=== PATIENT | female | born 1945 | race Caucasian/White ===

== ENCOUNTER → 2016-12-17 | Outpatient (CLI) | payer MEDICARE, BC ==
[2016-12-17 09:47] LABS: ALT 40 U/L (9-52); AST 32 U/L (14-36); Cholesterol 235 mg/dL (<200); HDL Cholesterol 80 mg/dL (40-60)
== END | disposition home or self-care (01) ==
LOC: LABWHC1 09:06
PROVIDERS: ATTEND Internal Medicine Interventional Cardiology
DX: E78.2 Mixed hyperlipidemia (principal)
CPT/HCPCS: 36415; 80061; 84450; 84460

== ENCOUNTER → 2017-04-23 | Outpatient (CLI) | payer MEDICARE, BC ==
[2017-04-23 08:40] LABS: Basophils % (A) 1 %; Eosinophils # (A) 0.1 k/uL (0-0.7); Eosinophils % (A) 2 %; HCT 39.1 % (34.0-46.0); HGB 12.2 gm/dL (11.4-16.0); Hypochromasia Slight; Lymphocytes # (A) 2.1 k/uL (1.0-4.8); Lymphocytes % (A) 35 %; MCH 26.9 pg (25.0-35.0); MCHC 31.1 g/dL (31.0-37.0); MCV 86.6 fL (80.0-100.0); Mean Platelet Volume 6.9; Monocytes # (A) 0.2 k/uL (0-1.0); Monocytes % (A) 4 %; Neutrophils # (A) 3.3 k/uL (1.3-7.7); Neutrophils % (A) 56 %; Platelet Count 267 k/uL (150-450); RBC 4.52 m/uL (3.80-5.40); RDW 13.7 % (11.5-15.5); WBC 5.9 k/uL (3.8-10.6)
[2017-04-23 09:07] LABS: ALT 29 U/L (9-52); AST 27 U/L (14-36); Albumin 3.8 g/dL (3.5-5.0); Alkaline Phosphatase 105 U/L (38-126); Anion Gap 7 mmol/L; Blood Urea Nitrogen 15 mg/dL (7-17); Calcium 9.6 mg/dL (8.4-10.2); Carbon Dioxide 31 mmol/L (22-30); Chloride 105 mmol/L (98-107); Cholesterol 274 mg/dL (<200); Glucose 96 mg/dL (74-99); HDL Cholesterol 81 mg/dL (40-60); LDL Cholesterol,Calculated 171 mg/dL (0-99); Potassium 4.3 mmol/L (3.5-5.1); Sodium 143 mmol/L (137-145); Total Bilirubin 0.4 mg/dL (0.2-1.3); Total Protein 6.9 g/dL (6.3-8.2); Triglycerides 110 mg/dL (<150)
== END | disposition home or self-care (01) ==
LOC: LABWHC1 07:59
PROVIDERS: ATTEND Family Medicine
DX: I10 Essential (primary) hypertension (principal); E55.9 Vitamin D deficiency, unspecified; E78.2 Mixed hyperlipidemia
CPT/HCPCS: 36415; 80053; 80061; 82306; 85025

== ENCOUNTER → 2017-12-15 | Outpatient (CLI) | payer MEDICARE, BC ==
[2017-12-15 09:29] LABS: ALT 22 U/L (9-52); AST 26 U/L (14-36); Cholesterol 278 mg/dL (<200); HDL Cholesterol 79 mg/dL (40-60); LDL Cholesterol,Calculated 166 mg/dL (0-99); Triglycerides 163 mg/dL (<150)
== END | disposition home or self-care (01) ==
LOC: LABWHC1 08:25
PROVIDERS: ATTEND Internal Medicine Interventional Cardiology
DX: E78.2 Mixed hyperlipidemia (principal)
CPT/HCPCS: 36415; 80061; 84450; 84460

== ENCOUNTER → 2018-04-13 | Outpatient (CLI) | payer MEDICARE, BC ==
[2018-04-13 11:09] LABS: HCT 34.6 % (34.0-46.0); HGB 10.7 gm/dL (11.4-16.0); Hypochromasia Marked; MCHC 30.8 g/dL (31.0-37.0); MCV 74.5 fL (80.0-100.0); Mean Platelet Volume 6.1; Microcytosis Slight; Platelet Count 309 k/uL (150-450); RBC 4.64 m/uL (3.80-5.40); RDW 14.9 % (11.5-15.5); WBC 7.2 k/uL (3.8-10.6)
[2018-04-13 11:23] LABS: Prothrombin Time 19.4 sec (9.0-12.0)
[2018-04-13 11:28] LABS: Blood Urea Nitrogen 14 mg/dL (7-17)
== END | disposition home or self-care (01) ==
LOC: LABPAT 09:52
PROVIDERS: ATTEND Internal Medicine Interventional Cardiology
DX: Z01.812 Encounter for preprocedural laboratory examination (principal); I48.2 Chronic atrial fibrillation; E78.5 Hyperlipidemia, unspecified; I10 Essential (primary) hypertension; I35.0 Nonrheumatic aortic (valve) stenosis
CPT/HCPCS: 36415; 82565; 84520; 85027; 85610

== ENCOUNTER → 2018-04-22 | Day surgery (SDC) | payer MEDICARE, BC ==
[2018-04-17 12:10] VITALS: BMI 35.2
[~2018-04-22] MED LIST: BENZOCAINE SPRAY 1 CAN TOPICAL ONE; LIDOCAINE 1% INJ 10MG/ML (20 ML MDV) ONE; PROPOFOL 10 MG/ML 20 ML VIAL IV ONE; SODIUM CHLORIDE 0.9% 1,000 ML IV SCH; SODIUM CHLORIDE 0.9% 500 ML 500 ML IV ONE
[2018-04-22 06:58] VITALS: TEMP 97.9
[2018-04-22 08:31] VITALS: RESP 16
--- NOTE | 2018-04-22 09:04 | ECHOT ---
TRANSESOPHAGEAL ECHOCARDIOGRAM DATE OF SERVICE: April 22, 2018 PERFORMING PHYSICIAN: Moe Wu MD, impregnator carbon products. PROCEDURE PERFORMED: Transesophageal echocardiogram. INDICATION: This is a pleasant 73-year-old female patient who is known to have paroxysmal atrial fibrillation, who was experiencing symptoms of heart racing and fluttering and was not feeling well. An EKG in the office showed atrial fibrillation. Because of that, a ESTEFANI and cardioversion was advised. The ESTEFANI is to rule out any intracardiac thrombus. COMPLICATION: None. LEVEL OF SEDATION: Deep sedation was performed using propofol. PROCEDURE DESCRIPTION: After obtaining an informed consent, explaining the procedure, benefits, risks, complications and alternatives, the patient was brought to the transesophageal echocardiogram suite. A pulse oximetry and heart rate monitors were attached to the patient prior to the procedure. The patient's throat was sprayed using lidocaine locally. Following that, the patient was turned into left lateral position. A bite guard was placed and the patient was then sedated with the above doses of Versed and fentanyl in divided doses. Following that, the transesophageal echocardiogram probe was advanced through the bite guard into the mid esophagus where 2-D echocardiogram images as well as color Doppler images of various cardiac structures were obtained. We evaluated the interatrial septum using 2-D echocardiogram, color Doppler, and contrast study. The procedure was completed. There were no complications. FINDINGS: The left ventricular dimension and systolic function appeared to be within normal limits. The ejection fraction appeared to be about 50%. The right ventricle appeared to be of normal size and function. The left atrium is severely dilated and the right atrium is moderately dilated. The left atrial appendage appeared to be free from any thrombus. The interatrial septum appeared to be intact by color-flow Doppler. The aortic valve is trileaflet valve without stenosis or regurgitation, but seems to be sclerotic. The mitral valve seems to be thickened and calcified with moderate MR. There was mild to moderate tricuspid regurgitation seen. CONCLUSION: 1. Normal left atrial appendage without any evidence of thrombus. 2. Severe left atrium dilatation and moderate right atrium dilatation. 3. Intact interatrial septum. 4. Normal left ventricular dimension and systolic function. 5. Normal right ventricular dimension and systolic function. 6. Thickened mitral valve leaflets with moderate mitral regurgitation. 7. Aortic sclerosis without stenosis or insufficiency. 8. Thickened tricuspid valve leaflets with mild to moderate tricuspid regurgitation. 9. Normal aortic root dimension. 10.No evidence of pericardial effusion. MMODL / IJN: [id number] /
--- NOTE | 2018-04-22 09:55 | CE ---
CARDIAC ELECTROPHYSIOLOGY REPORT DATE OF SERVICE: 04/22/2018 PERFORMING PHYSICIAN: Moe Wu MD, Grinder. PROCEDURE PERFORMED: Cardioversion of atrial fibrillation. PROCEDURE DESCRIPTION: After ESTEFANI was performed and left atrial appendage thrombus was ruled out, we decided to pursue with a cardioversion. The patient converted from atrial fibrillation to normal sinus mechanism using 200 joules on first attempt. CONCLUSION: Successful cardioversion of atrial fibrillation to normal sinus mechanism using 200 joule at first attempt. MMODL / IJN: [id number] /
[2018-04-22 10:15] VITALS: BP 154/60; PULSE 46
== END ==
LOC: CATHCVL 06:13
PROVIDERS: ATTEND Internal Medicine Interventional Cardiology
DX: I48.2 Chronic atrial fibrillation (principal); I35.0 Nonrheumatic aortic (valve) stenosis; E78.5 Hyperlipidemia, unspecified; I10 Essential (primary) hypertension; Z82.49 Family history of ischemic heart disease and other diseases of the circulatory system; Z79.01 Long term (current) use of anticoagulants; Z79.899 Other long term (current) drug therapy; Z88.8 Allergy status to other drugs, medicaments and biological substances
CPT/HCPCS: 93312; 93320; 93325; 92960; 85610; J2001; J2704

== ENCOUNTER → 2018-06-30 | Outpatient (CLI) | payer MEDICARE, BC ==
[2018-06-30 08:09] LABS: INR 1.9 (<1.2); Prothrombin Time 18.4 sec (9.0-12.0)
[2018-06-30 08:13] LABS: HCT 35.3 % (34.0-46.0); HGB 10.3 gm/dL (11.4-16.0); Hypochromasia Marked; MCH 21.5 pg (25.0-35.0); MCV 74.1 fL (80.0-100.0); Mean Platelet Volume 6.8; Microcytosis Slight; Platelet Count 371 k/uL (150-450); RBC 4.76 m/uL (3.80-5.40)
[2018-06-30 08:37] LABS: Anion Gap 6 mmol/L; Blood Urea Nitrogen 15 mg/dL (7-17); Carbon Dioxide 28 mmol/L (22-30); Chloride 107 mmol/L (98-107); Potassium 4.8 mmol/L (3.5-5.1); Sodium 141 mmol/L (137-145)
== END | disposition home or self-care (01) ==
LOC: LABPAT 07:04
PROVIDERS: ATTEND Internal Medicine Interventional Cardiology
DX: Z01.812 Encounter for preprocedural laboratory examination (principal); I48.2 Chronic atrial fibrillation; I10 Essential (primary) hypertension
CPT/HCPCS: 36415; 80051; 82565; 84520; 85027; 85610

== ENCOUNTER 2018-07-13 07:52 | Day surgery (SDC) | payer MEDICARE, BC ==
[~2018-07-13 07:52] MED LIST changes: +ALPRAZolam 0.25 MG TAB PO PRN; +ALPRAZolam 0.5 MG TAB PO PRN; +ASPIRIN 325 MG TAB PO STA; -BENZOCAINE SPRAY 1 CAN TOPICAL ONE; -LIDOCAINE 1% INJ 10MG/ML (20 ML MDV) ONE; +NITROGLYCERIN SL TABS 0.4 MG TAB SUBLINGUAL PRN; -PROPOFOL 10 MG/ML 20 ML VIAL IV ONE; -SODIUM CHLORIDE 0.9% 1,000 ML IV SCH; +SODIUM CHLORIDE 0.9% 1,000 ML in EMPTY BAG 1 BAG IV ONE; -SODIUM CHLORIDE 0.9% 500 ML 500 ML IV ONE
[2018-07-13 08:30] VITALS: RESP 16; TEMP 97.5
[2018-07-13] MEDS: MIDAZOLAM (PF) 2 MG/2 ML VIAL IV ONE ×2 (08:57→08:59)
[2018-07-13] MEDS ORDERED: LIDOCAINE 1% INJ 10MG/ML (20 ML MDV) SQ ONE (08:59)
[2018-07-13] MEDS ORDERED: VERAPAMIL SYRINGE (5 MG/10 ML) INTRAARTER ONE (09:02)
[2018-07-13 09:04] LABS: Anisocytosis Slight; HCT 31.5 % (34.0-46.0); HGB 9.9 gm/dL (11.4-16.0); Hypochromasia Marked; MCH 22.5 pg (25.0-35.0); MCHC 31.4 g/dL (31.0-37.0); MCV 71.9 fL (80.0-100.0); Mean Platelet Volume 6.5; Microcytosis Moderate; Platelet Count 369 k/uL (150-450); RBC 4.38 m/uL (3.80-5.40); RDW 16.2 % (11.5-15.5); WBC 7.6 k/uL (3.8-10.6)
[2018-07-13 09:14] LABS: INR 0.9 (<1.2); Prothrombin Time 10.2 sec (9.0-12.0)
[2018-07-13] MEDS ORDERED: IOPAMIDOL-370 50ML BTL INJ ONE (09:26)
[2018-07-13] MEDS ORDERED: RX INFO: IV CONTRAST WAS GIVEN 1 EACH MISC MISCELLANE PRN (09:32)
[2018-07-13] MEDS ORDERED: SODIUM CHLORIDE 0.9% 1,000 ML IV SCH (09:45)
--- NOTE | 2018-07-13 09:47 | LTR ---
DATE OF SERVICE: 07/13/2018 RE: Epifanio Michelle Dear Dr. Livingston; Ms. Michelle Godfrey underwent today a heart catheterization and that revealed normal coronaries. I want to thank you for allowing us to participate in her care and please do not hesitate to call if you have any question or concern. Sincerely, MD JEFF Stephen / HELDER: [id number] /
--- NOTE | 2018-07-13 09:47 | CC ---
CARDIAC CATHETERIZATION REPORT DATE OF SERVICE: 07/13/2018 PERFORMING PHYSICIAN: Moe Wu MD, Tailing Machine Operator. PROCEDURE PERFORMED: 1. Selective right and left coronary angiogram. 2. Left heart catheterization. INDICATION: This is a pleasant 73-year-old female patient who does have paroxysmal atrial fibrillation. Recently, she has been in atrial fibrillation after cardioversion. She was seen and evaluated by Dr. Proctor who recommended the patient to be started on flecainide. The heart catheterization is to rule out severe coronary artery disease. APPROACH: Right radial artery. COMPLICATION: None. LEVEL OF SEDATION: Moderate with sedation length of 30 minutes. PROCEDURE DESCRIPTION: After obtaining an informed consent, the patient was brought to the cardiac airport maintenance laborer. The right radial artery was cannulated using micropuncture technique, the micropuncture wire passed easily, then I placed a 6-Vietnamese sheath in the right radial artery. After that, I did selective right and left coronary angiogram using JR4 and JL3.5 catheters. We had hard time engaging both coronaries because of the extreme tortuous right subclavian. Before the procedure, the patient was given 8000 units of heparin and 2 mg of verapamil IA. The procedure was completed without any complication. SELECTIVE CORONARY ANGIOGRAM: 1. The right coronary artery is a large caliber vessel and it is a dominant vessel. It has mild disease only. 2. The left main is angiographically normal. It bifurcates into left circumflex and left anterior descending artery. 3. The left circumflex bifurcates into left circumflex, ramus intermedius, and left anterior descending artery. 4. The left circumflex is a medium caliber vessel and it is a nondominant vessel and appeared to have mild disease only. 5. The ramus intermedius appeared to have mild disease only. 6. The LAD appeared to be angiographically normal. HEMODYNAMICS: The left ventricular end-diastolic pressure was about 8 mmHg without significant gradient across the aortic valve. CONCLUSION: 1. Mild nonobstructive coronary artery disease. 2. Normal left ventricular end-diastolic pressure. POSTPROCEDURE MANAGEMENT: 1. Medical treatment. 2. Follow up with the patient. MMODL / IJN: [id number] /
[2018-07-13] MEDS ORDERED: ACETAMINOPHEN TAB 325 MG TAB ONE (14:31)
[2018-07-13 15:01] VITALS: BP 142/76; PULSE 88
== END 2018-07-13 15:02 | disposition home or self-care (01) ==
LOC: CATHCVL 07:52
PROVIDERS: ATTEND Internal Medicine Interventional Cardiology
DX: I25.10 Atherosclerotic heart disease of native coronary artery without angina pectoris (principal); I48.2 Chronic atrial fibrillation; I48.0 Paroxysmal atrial fibrillation; I35.0 Nonrheumatic aortic (valve) stenosis; I10 Essential (primary) hypertension; E78.5 Hyperlipidemia, unspecified; E78.00 Pure hypercholesterolemia, unspecified; Z88.8 Allergy status to other drugs, medicaments and biological substances; Z79.01 Long term (current) use of anticoagulants; Z79.899 Other long term (current) drug therapy; Z99.89 Dependence on other enabling machines and devices; Z82.49 Family history of ischemic heart disease and other diseases of the circulatory system
CPT/HCPCS: 93458; 85027; 85610; C1769 ×3; C1894; J2001; J1644; Q9967; J2250

== ENCOUNTER → 2018-08-11 | Outpatient (CLI) | payer MEDICARE, BC ==
[2018-08-11 08:31] LABS: HCT 33.6 % (34.0-46.0); HGB 9.9 gm/dL (11.4-16.0); Hypochromasia Marked; MCHC 29.4 g/dL (31.0-37.0); MCV 71.2 fL (80.0-100.0); Mean Platelet Volume 6.5; Microcytosis Moderate; Platelet Count 447 k/uL (150-450); RBC 4.72 m/uL (3.80-5.40); RDW 15.9 % (11.5-15.5); WBC 8.3 k/uL (3.8-10.6)
[2018-08-11 08:52] LABS: Anion Gap 7 mmol/L; Blood Urea Nitrogen 13 mg/dL (7-17); Carbon Dioxide 30 mmol/L (22-30); Chloride 106 mmol/L (98-107); Potassium 4.4 mmol/L (3.5-5.1); Sodium 143 mmol/L (137-145)
== END ==
LOC: LABPAT 07:49
PROVIDERS: ATTEND Internal Medicine Interventional Cardiology
DX: Z01.812 Encounter for preprocedural laboratory examination (principal); I48.1 Persistent atrial fibrillation; I25.10 Atherosclerotic heart disease of native coronary artery without angina pectoris
CPT/HCPCS: 36415; 80051; 82565; 84520; 85027

== ENCOUNTER 2018-08-31 06:29 | Day surgery (SDC) | payer MEDICARE, BC ==
[2018-08-26 10:25] VITALS: BMI 35.2
[~2018-08-31 06:29] MED LIST changes: -ALPRAZolam 0.25 MG TAB PO PRN; -ALPRAZolam 0.5 MG TAB PO PRN; -ASPIRIN 325 MG TAB PO STA; -NITROGLYCERIN SL TABS 0.4 MG TAB SUBLINGUAL PRN; +SODIUM CHLORIDE 0.9% 1,000 ML IV SCH; -SODIUM CHLORIDE 0.9% 1,000 ML in EMPTY BAG 1 BAG IV ONE
[2018-08-31] MEDS ORDERED: SODIUM CHLORIDE 0.9% 500 ML 500 ML IV ONE ×2 (07:23→07:51)
[2018-08-31] MEDS ORDERED: PROPOFOL 10 MG/ML 20 ML VIAL IV ONE (07:35)
[2018-08-31 07:39] LABS: INR 3.6 (<1.2); Prothrombin Time 35.1 sec (9.0-12.0)
--- NOTE | 2018-08-31 08:05 | CE ---
CARDIAC ELECTROPHYSIOLOGY REPORT CARDIOVERSION DATE OF SERVICE: August 31, 2018 PERFORMING PHYSICIAN: Moe Wu MD, detailer school photographs. PROCEDURE PERFORMED: Cardioversion. INDICATION: Atrial fibrillation. COMPLICATION: None. LEVEL OF SEDATION: Deep sedation was performed with using propofol with CHILD DEVELOPMENT CONSULTANT in the room. PROCEDURE DESCRIPTION: After obtaining an informed consent, the patient was brought to the cardioversion suite. The patient was sedated using propofol with CHILD DEVELOPMENT CONSULTANT in the room. Successful cardioversion was achieved using 200 joules on first attempt. No complication. No arrhythmia noted. CONCLUSION: Successful cardioversion of atrial fibrillation to normal sinus mechanism using 200 joules on first attempt. MMODL / IJN: [id number] /
[2018-08-31 08:07] VITALS: TEMP 98
[2018-08-31 08:08] VITALS: RESP 16
[2018-08-31 09:53] VITALS: PULSE 58
[2018-08-31 09:56] VITALS: BP 122/62
== END 2018-08-31 09:50 | disposition home or self-care (01) ==
LOC: CATHCVL 06:29
PROVIDERS: ATTEND Internal Medicine Interventional Cardiology
DX: I48.0 Paroxysmal atrial fibrillation (principal); I35.0 Nonrheumatic aortic (valve) stenosis; I10 Essential (primary) hypertension; E78.5 Hyperlipidemia, unspecified; Z82.49 Family history of ischemic heart disease and other diseases of the circulatory system; G47.33 Obstructive sleep apnea (adult) (pediatric); Z99.89 Dependence on other enabling machines and devices; K21.9 Gastro-esophageal reflux disease without esophagitis; Z97.2 Presence of dental prosthetic device (complete) (partial); Z79.01 Long term (current) use of anticoagulants; Z79.899 Other long term (current) drug therapy; Z88.8 Allergy status to other drugs, medicaments and biological substances; Z88.5 Allergy status to narcotic agent
CPT/HCPCS: 92960; 85610; J2704

== ENCOUNTER → 2018-10-20 | Outpatient (CLI) | payer MEDICARE, BC ==
[2018-10-20 08:38] LABS: Anisocytosis Slight; HCT 31.4 % (34.0-46.0); HGB 9.3 gm/dL (11.4-16.0); Hypochromasia Marked; MCH 20.9 pg (25.0-35.0); MCHC 29.7 g/dL (31.0-37.0); MCV 70.4 fL (80.0-100.0); Mean Platelet Volume 7.4; Microcytosis Moderate; Platelet Count 356 k/uL (150-450); RBC 4.46 m/uL (3.80-5.40); RDW 16.5 % (11.5-15.5); WBC 6.7 k/uL (3.8-10.6)
[2018-10-20 08:49] LABS: African American GFR (CKD) >90 (>60 ml/min/1.73 sqM); Anion Gap 6 mmol/L; Blood Urea Nitrogen 15 mg/dL (7-17); Carbon Dioxide 29 mmol/L (22-30); Chloride 107 mmol/L (98-107); Glucose 100 mg/dL (74-99); Non-African American GFR(CKD) 89 (>60 ml/min/1.73 sqM); Potassium 4.1 mmol/L (3.5-5.1); Sodium 142 mmol/L (137-145)
== END | disposition home or self-care (01) ==
LOC: LABPAT 07:59
PROVIDERS: ATTEND Internal Medicine Clinical Cardiac Electrophysiology
DX: Z01.812 Encounter for preprocedural laboratory examination (principal); I48.2 Chronic atrial fibrillation
CPT/HCPCS: 36415; 80051; 82565; 82947; 84520; 85027

== ENCOUNTER 2018-11-05 13:54 | Day surgery (SDC) | payer MEDICARE, BC ==
[~2018-11-05 13:54] MED LIST changes: +LACTATED RINGERS 1,000 ML IV SCH; -SODIUM CHLORIDE 0.9% 1,000 ML IV SCH
[2018-11-05] MEDS ORDERED: SODIUM CHLORIDE 0.9% 1,000 ML IV ONE (14:37)
[2018-11-05] MEDS ORDERED: PHENYLEPHRINE-0.9% NACL SYG 1 MG/10 ML SYRINGE ONE (15:20)
[2018-11-05] MEDS ORDERED: ePHEDrine SULFATE/0.9% NACL/PF 50 MG/5 ML SYRINGE IV ONE (15:20)
[2018-11-05] MEDS ORDERED: fentaNYL (PF) 50 MCG/ML 2 ML AMP ONE (15:20)
[2018-11-05] MEDS ORDERED: PROPOFOL 10 MG/ML 20 ML VIAL IV ONE (15:20)
[2018-11-05] MEDS ORDERED: HEPARIN SODIUM,PORCINE 10,000 UNIT/ML 1 ML VIAL ONE (15:20)
[2018-11-05] MEDS ORDERED: PROTAMINE SULFATE 10 MG/ML 5 ML VIAL IV ONE (15:20)
[2018-11-05] MEDS ORDERED: MIDAZOLAM 2 MG/2 ML VIAL ONE (15:20)
[2018-11-05] MEDS ORDERED: SUCCINYLCHOLINE CHLORIDE 100 MG/5 ML SYR IV ONE (15:20)
[2018-11-05] MEDS ORDERED: LIDOCAINE 1% INJ 10MG/ML (20 ML MDV) ONE (15:22)
--- NOTE | 2018-11-05 15:23 | P.HPCAR ---
History of Present Illness This is Dr. Proctor dictating an H&P on this patient The patient was interviewed and examined by me IMPRESSION / ASSESSMENT: Persistent symptomatic atrial fibrillation, failed antiarrhythmic drug therapy and to electrical cardioversions Complains of tiredness fatigue shortness of breath and atrial fibrillation Denies any fever chills cough expectoration urinary symptoms orthopnea PND History of obstructive sleep apnea using CPAP mask Hypertension Patient on warfarin PLAN: Patient stable from a cardiac standpoint to proceed with pulmonary vein isolation/cryoablation under general anesthesia HPI Patient complains of tiredness fatigue and shortness of breath with mild exertion. She has a history of persistent atrial fibrillation and she has undergone therapy with antiplatelet drugs, flecainide as well as to electrical cardioversions. She has failed both electrocardioversions reason atrial fibrillation No dizziness no loss of consciousness no chest pain She denies any constitutional symptoms, urinary symptoms. She does have a cough which is dry or expectoration no skin infections Orthopnea PND chest pain or loss of consciousness ROS: No fever chills or rigors, no cough, phlegm or expectoration, no nausea, vomiting or diarrhea, no hematuria, dysuria, no musculoskeletal complaints, no strokes or seizures, no skin lesions. EXAMINATION: Afebrile 98.3F ulcerated in the 80s, blood pressure 135/77 mmHg pulse ox 100% on room air No JVD Breath sounds are clear no rhonchi no crackles At sounds: Soft ejection systolic murmur over the aortic area Abdomen soft nontender Extremities are warm no edema REVIEW OF LABS, ECG & MEDICAL DATA INR in August was 3.6 Physical Exam Vitals: Vital Signs Temp Pulse Resp BP Pulse Ox 11/05/18 14:38 98.3 F 84 16 135/77 100 Intake and Output 11/05/18 11/05/18 11/05/18 06:59 14:59 22:59 Intake Total 20 Balance 20 Intake: IV 20 Past Medical History Past Medical History: Atrial Fibrillation, CVA/TIA, GERD/Reflux, Hearing Disorder / Deafness, Hyperlipidemia, Hypertension, Memory Impairment, Osteoarthritis (OA), Pneumonia, Sleep Apnea/CPAP/BIPAP Additional Past Medical History / Comment(s): TREMORS FOR 5 YRS MOSTLY RIGHT ARM. TOLD SEVERAL TIA'S, PER MRI. USES CPAP. SOB with exertion. Hx prolapsed rectum, constipation. History of Any Multi-Drug Resistant Organisms: None Reported Past Surgical History: Bariatric Surgery, Cholecystectomy, Hernia Repair, Hysterectomy, Joint Replacement, Orthopedic Surgery Additional Past Surgical History / Comment(s): BARIATRIC BYPASS, [place]-en-Y 05/2013. TOTAL RT KNEE X2. LT ROTATOR CUFF REPAIR. HIATAL HERNIA REPAIR X2. SINUS SURGERY, CERVICAL FUSION, cataracts bilateral. Past Anesthesia/Blood Transfusion Reactions: Previous Problems w/ Anesthesia Additional Past Anesthesia/Blood Transfusion Reaction / Comment(s): SLOW TO AWAKEN FROM ANESTHESIA. Past Psychological History: Anxiety, Depression Additional Psychological History / Comment(s): IN EARLY S. Smoking Status: Never smoker Past Alcohol Use History: None Reported Past Drug Use History: None Reported - Past Family History Father Family Medical History: Myocardial Infarction (SD) Additional Family Medical History / Comment(s): TUBERCULOSIS Mother Family Medical History: Congestive Heart Failure (CHF), CVA/TIA, Myocardial Infarction (SD) Physical Examination Vital Signs Temp Pulse Resp BP Pulse Ox 11/05/18 14:38 98.3 F 84 16 135/77 100 Intake and Output 11/05/18 11/05/18 11/05/18 06:59 14:59 22:59 Intake Total 20 Balance 20 Intake: IV 20 Results Current Medications Generic Name Dose Route Start Last Admin Trade Name Freq PRN Reason Stop Dose Admin Lactated Ringer's 1,000 mls @ 20 mls/hr 11/05/18 06:29 Lactated Ringers IV .Q24H CHRISTIN Sodium Chloride 1,000 mls @ 50 mls/hr 11/05/18 06:29 Saline 0.9% IV .Q20H CHRISTIN Intake and Output 11/05/18 11/05/18 11/05/18 06:59 14:59 22:59 Intake Total 20 Balance 20 Intake: IV 20
[2018-11-05] MEDS ORDERED: HEPARIN SOD,PORK IN 0.45% NACL 25,000 UNIT in 0.45% NACL 1 250ML.BAG IV ONE (15:24)
[2018-11-05] MEDS ORDERED: LIDOCAINE 1% INJ 10MG/ML (20 ML MDV) SQ ONE (16:00)
[2018-11-05] MEDS ORDERED: HYDROcodone/APAP 5-325MG 1 EACH TAB PO PRN (18:14)
[2018-11-05] MEDS ORDERED: ACETAMINOPHEN IV (For NPO) 1,000 MG in EMPTY BAG 1 BAG IVPB ONE (18:14)
[2018-11-05] MEDS ORDERED: WARFARIN 5 MG TAB PO SCH (18:15)
[2018-11-05] MEDS ORDERED: IOPAMIDOL-370 100ML BTL INJ ONE (18:40)
--- NOTE | 2018-11-05 18:43 | P.PRLE ---
RE: Michelle Godfrey Dear Alan Martinez underwent pulmonary vein isolation successfully for management of atrial fibrillation During the procedure I placed an intracardiac echo catheter in her right atrium. There appears to be a significant amount of thickening around the left atrium consistent with healed pericarditis. This extends over onto the ventricles also but his particular predominant around the atria. This is most likely a contributing factor in the rk of her atrial fibrillation She has had hiatal hernia surgery many many years back at the [facility] in the late s but she does not report any recent viral infection nor any vasculitis days or inflammatory conditions such as lupus. This may be worth looking into as to causes of the reasons for her pericarditis I have given her colchicine 0.6 g twice daily and hopefully she can tolerate this for a few weeks She will continue all her other medications. Her PT/INR needs to be monitored on a weekly basis and maintained between 2 and 3. Thank you for entrusting me with the care of the patient Warm regards Sincerely Dominick Proctor
--- NOTE | 2018-11-05 18:48 | P.PCN ---
Preoperative Diagnosis: Diagnosis Atrial fibrillation, symptomatic, refractory to therapy Persistent, failed flecainide with electrical cardioversion Result Intracardiac echo revealed thickening of the wall of the left atrium as well as the pericardium. Pericardial thickening extended into the right atrium and the base of the left ventricle Likely past history of pericarditis, cause unknown at this time. We will treat with colchicine No left atrial appendage mass seen on intracardiac echo Successful pulmonary vein isolation of all veins using cryo-ablation Complete entrance block in all 4 veins confirmed No evidence for phrenic nerve injury Esophageal deflection YES. Esophageal stretch noted. Minimal displacement of esophagus. Status post hiatal hernia surgery Electrical cardioversion with a synchronized shock across the chest YES Procedure details Patient was brought to the EP lab in a fasting state. Written informed consent was obtained prior to the procedure. Procedure performed under general anesthesia After initial muscle relaxant use, muscle relaxants were not given thereafter in order to assess phrenic nerve during procedure. Patient prepped and draped as per protocol Full cryo-set up with standard preparation of the cryoablation tools done. Femoral Venous access obtained on the right and left groins Venous and arterial Sheaths placed. Diagnostic catheters for the high right atrium, phrenic nerve stimulation and pacing, His bundle, RV and coronary sinus placed Intracardiac echo catheter placed. Long sheath placed in the right atrium Left and right transseptal catheterization performed under intracardiac echo guidance. Intravenous heparin with aCT above 300 Later, catheter positioning and balloon positioning in the left atrium, under intracardiac echo guidance Diagnostic EP study with Coronary sinus pacing and recording Baseline measurements HV interval 33 ms Sinus cycle length 610, NE interval 127, QRS 124 and QT interval 404 ms Transseptal catheterization performed RA pressure 13/4/9 LA pressure 17/4/10 Transseptal catheterization performed with standard sheath. The cryoablation sheath was then placed with an over the wire exchange without any acute complications. All 4 pulmonary veins were isolated in the following sequence: Left superior followed by left inferior followed by right superior followed by right inferior The cryo-ablation balloon was placed at the os of each vein 1.5 mL of IV dye was injected to confirm an occluded vein Goal during cryoablation was to achieve complete occlusion of the pulmonary vein, achieve -30 degrees C at 30 seconds and achieve -40 degrees C at 60 seconds and a time to effect of less than 60-90 seconds, . If not the balloon was repositioned to obtain this result After completion of Cryoblation with durations from 180-240 seconds, entrance block was confirmed with the Attain circular catheter in a roving fashion around the antrum of the pulmonary veins Phrenic nerve pacing was performed from the SVC, right innominate vein area and diaphragm voltage was monitored. Diaphragmatic contractions were also monitored manually for strength of contraction. Parameter goals for each cryo freeze Complete occlusion of the appropriate vein -30 degrees C by 30 seconds -40 degrees C by 60 seconds Minimum between minus 40-55 degrees C Thaw time greater than 10 seconds Balloon visualized by intracardiac echo The esophagus was intubated. Esophageal Temperature monitoring with a CIRCA catheter formed. Esophageal deflection for hypothermia of the esophagus below 30 degrees C Left superior pulmonary vein Complete isolation, entrance block Left inferior pulmonary vein Complete isolation, entrance block Right superior pulmonary vein, during phrenic nerve pacing Complete isolation, entrance block Right inferior pulmonary vein, during phrenic nerve pacing Complete isolation, entrance block At the end of the procedure the Achieve catheter was once again used to check for entrance block Phrenic nerve stimulation was performed to confirm diaphragmatic stimulation the end of the procedure Cine fluoroscopy was performed at the very end of the procedure to confirm movement of both diaphragms with inspiration and expiration At the end of the procedure the patient was extubated Heparin was reversed Venous sheaths were removed and hemostasis assured Procedures performed (PVI - CRYO Ablation) Diagnostic EP study CS pacing and recording Left and right transseptal catheterization Catheter the mapping of the tachycardia (NOT 3D mapping) Intracardiac echocardiography Pulmonary vein isolation with transseptal and comprehensive EPS, [id number] Electrical cardioversion with a synchronized shock across the chest [id number]
--- NOTE | 2018-11-05 18:50 | P.DS ---
Providers Attending physician: Dominick Proctor Primary care physician: Alan Davila Assessment: Patient is doing well. She says she feels well. She has minimal sore throat no chest discomfort but there is some itchiness on her skin which she's had before. There is minimal redness in the skin Blood pressure 115/72 mmHg pulse rate in the 70s afebrile 98.9F Few crackles at both bases no rhonchi Heart normal heart sounds no murmurs no rub no gallop, normal S1 normal S2 Abdomen is soft nontender Groins of healed well is no hematoma no swelling Today her INR is 3.0 BMP was reviewed Sodium 138, potassium 4.2, BUN 16, creatinine 0.65 Creatinine clearance is 57 Her QT interval was just above 400 ms yesterday This morning her twelve-lead ECG shows sinus mechanism with a QT interval, absolute of less than 440 ms Impression Persistent symptomatic atrial fibrillation with tiredness and fatigue Failed electrical cardioversion plus flecainide Successful isolation of all 4 pulmonary veins Evidence of pericarditis with thickening of the wall of the atria Hypertension Gastric bypass surgery, hiatal hernia surgery in the late Minimal displacement of the esophagus with attempted esophageal deflection. Left-sided esophagus Her creatinine clearance trend has ranged from 57-66 over the last 6 months Absolute QT interval is less than 440 ms in sinus rhythm Plan Continue anticoagulation with Coumadin Flecainide 50 mg twice daily Colchicine 0.6 mg twice daily for at least 2 weeks If she has a recurrence of atrial fibrillation particularly if persistent, then dofetilide should be considered. This was discussed with the family Creatinine clearance is 57 and dofetilide 250 g twice daily to be initiated as an inpatient could be considered Baseline QT interval is less than 440 ms Patient Condition at Discharge: Stable Plan - Discharge Summary Discharge Rx Participant: Yes New Discharge Prescriptions: New Colchicine [Colcrys] 0.6 mg PO BID #28 tablet Flecainide [Tambocor] 50 mg PO Q12HR #90 tablet Discontinued Flecainide [Tambocor] 25 mg PO Q12HR No Action Atenolol [Tenormin] 25 mg PO DAILY Warfarin Sodium 7.5 mg PO SUMOWETHFRSA L.acidoph,Paracasei, B.lactis [Probiotic] 1 each PO DAILY Cholecalciferol [Vitamin D3 (25 Mcg = 1000 Iu)] 1,000 unit PO DAILY Calcium Carbonate [Calcium] 600 mg PO DAILY Multivitamins, Thera [Multivitamin (formulary)] 1 tab PO DAILY Cyanocobalamin (Vitamin B-12) [Vitamin B-12] 1,000 mcg PO DAILY Warfarin Sodium 5 mg PO TU Fluvastatin Sodium [Lescol] 20 mg PO DAILY Sennosides-Docusate Sodium [Senokot-S] 1 each PO BID Acetaminophen Tab [Tylenol Tab] 325 mg PO TID PRN PRN Reason: Headache Discharge Medication List Atenolol [Tenormin] 25 mg PO DAILY 03/31/14 [History] Warfarin Sodium 7.5 mg PO SUMOWETHFRSA 03/31/14 [History] Calcium Carbonate [Calcium] 600 mg PO DAILY 04/17/18 [History] Cholecalciferol [Vitamin D3 (25 Mcg = 1000 Iu)] 1,000 unit PO DAILY 04/17/18 [History] Cyanocobalamin (Vitamin B-12) [Vitamin B-12] 1,000 mcg PO DAILY 04/17/18 [History] L.acidoph,Paracasei, B.lactis [Probiotic] 1 each PO DAILY 04/17/18 [History] Multivitamins, Thera [Multivitamin (formulary)] 1 tab PO DAILY 04/17/18 [History] Warfarin Sodium 5 mg PO TU 07/10/18 [History] Fluvastatin Sodium [Lescol] 20 mg PO DAILY 08/26/18 [History] Acetaminophen Tab [Tylenol Tab] 325 mg PO TID PRN 10/30/18 [History] Sennosides-Docusate Sodium [Senokot-S] 1 each PO BID 10/30/18 [History] Colchicine [Colcrys] 0.6 mg PO BID #28 tablet 11/05/18 [Rx] Flecainide [Tambocor] 50 mg PO Q12HR #90 tablet 11/05/18 [Rx] Follow up Appointment(s)/Referral(s): Dominick Proctor MD [STAFF PHYSICIAN] - 1 Week Activity/Diet/Wound Care/Special Instructions: Post EP study - Ablation instructions 1. Keep access sites dry for 2 days. 2. No heavy lifting or straining for 2 days. 3. Avoid bending the hips repeatedly for 2 days. 4. You may go up and down stairs slowly Call if the following is noted 1. Bleeding, increasing swelling or pain at the access sites. 2. Increasing chest discomfort, especially upon taking a deep breath. 3. Increasing shortness of breath, at rest or with exertion. 4. Undue cough / phlegm 5. Difficulty or pain while swallowing. 6. Pain or change in color in the extremities. 7. Fever, chills, rigors. 8. Increasing headache or neurologic symptoms. 9. Dizziness, fainting, palpitations Start colchicine 0.6 g twice daily for 1-2 weeks Increase flecainide to 50 g twice daily Continue warfarin Continue atenolol
[2018-11-05] MEDS ORDERED: ONDANSETRON 4 MG/2 ML VIAL IVP ONE (18:55)
[2018-11-05] MEDS: SODIUM CHLORIDE 0.9% 1,000 ML IV SCH ×2 (19:42→21:50)
[2018-11-05 19:55] VITALS: BMI 34.4
[2018-11-05 20:57] LABS: INR 2.2 (<1.2); Prothrombin Time 21.8 sec (9.0-12.0)
[2018-11-05] MEDS: FLECAINIDE 50 MG TAB PO SCH (21:18)
[2018-11-05] MEDS: COLCHICINE 0.6 MG EACH PO SCH (21:18)
[2018-11-06 07:23] LABS: Prothrombin Time 28.8 sec (9.0-12.0)
[2018-11-06 07:26] LABS: African American GFR (CKD) >90 (>60 ml/min/1.73 sqM); Anion Gap 5 mmol/L; Blood Urea Nitrogen 16 mg/dL (7-17); Calcium 9.1 mg/dL (8.4-10.2); Carbon Dioxide 26 mmol/L (22-30); Chloride 107 mmol/L (98-107); Glucose 81 mg/dL (74-99); Potassium 4.2 mmol/L (3.5-5.1); Sodium 138 mmol/L (137-145)
[2018-11-06] MEDS ORDERED: ATENOLOL 25 MG TAB PO SCH (09:00)
[2018-11-06] MEDS: FLECAINIDE 50 MG TAB PO SCH (10:23)
[2018-11-06] MEDS: COLCHICINE 0.6 MG EACH PO SCH (10:23)
[2018-11-06] MEDS: ACETAMINOPHEN TAB 325 MG TAB PO PRN ×2 (10:26→18:15)
[2018-11-06] MEDS ORDERED: AMMONIUM LACTATE 12% LOTION 225 GM BTL TOPICAL SCH (10:45)
[2018-11-06 11:24] VITALS: BP 118/76; PULSE 65; RESP 18; TEMP 98.2
[2018-11-10] MEDS ORDERED: WARFARIN 5 MG TAB PO SCH (18:00)
== END 2018-11-06 18:50 | disposition home or self-care (01) ==
LOC: CATHEP 13:54 → 1SOBS 17:57 → CATHEP 11-06 18:50
PROVIDERS: ATTEND Internal Medicine Clinical Cardiac Electrophysiology
DX: I48.1 Persistent atrial fibrillation (principal); G47.33 Obstructive sleep apnea (adult) (pediatric); Z99.89 Dependence on other enabling machines and devices; I10 Essential (primary) hypertension; Z86.73 Personal history of transient ischemic attack (TIA), and cerebral infarction without residual deficits; K21.9 Gastro-esophageal reflux disease without esophagitis; H91.90 Unspecified hearing loss, unspecified ear; E78.5 Hyperlipidemia, unspecified; R41.3 Other amnesia; Z87.01 Personal history of pneumonia (recurrent); M19.90 Unspecified osteoarthritis, unspecified site; R25.1 Tremor, unspecified; Z98.84 Bariatric surgery status; Z90.49 Acquired absence of other specified parts of digestive tract; Z90.710 Acquired absence of both cervix and uterus; Z96.651 Presence of right artificial knee joint; Z98.1 Arthrodesis status; F41.9 Anxiety disorder, unspecified; F32.9 Major depressive disorder, single episode, unspecified; Z82.49 Family history of ischemic heart disease and other diseases of the circulatory system; Z83.1 Family history of other infectious and parasitic diseases; Z82.3 Family history of stroke; Z79.01 Long term (current) use of anticoagulants; Z79.899 Other long term (current) drug therapy
CPT/HCPCS: 85347; 92960; 93662; 93609; 93656; 80048; 85610 ×2; C1759; C1769 ×4; C1894 ×2; C1730 ×2; C1893; C1733; C1766; J2405; J2001; Q9967; J1644

== ENCOUNTER 2018-11-08 17:51 | Observation (INO) | payer MEDICARE, BC ==
[2018-11-08 19:59] LABS: INR 3.8 (<1.2); Partial Thromboplastin Time 35.6 sec (22.0-30.0); Prothrombin Time 36.8 sec (9.0-12.0)
[2018-11-08 20:04] LABS: ALT 25 U/L (9-52); AST 33 U/L (14-36); African American GFR (CKD) >90 (>60 ml/min/1.73 sqM); Albumin 3.7 g/dL (3.5-5.0); Alkaline Phosphatase 101 U/L (38-126); Anion Gap 7 mmol/L; Blood Urea Nitrogen 21 mg/dL (7-17); Calcium 9.4 mg/dL (8.4-10.2); Carbon Dioxide 25 mmol/L (22-30); Chloride 106 mmol/L (98-107); Glucose 88 mg/dL (74-99); Potassium 4.3 mmol/L (3.5-5.1); Sodium 138 mmol/L (137-145); Total Bilirubin 0.2 mg/dL (0.2-1.3); Total Protein 6.8 g/dL (6.3-8.2)
--- NOTE | 2018-11-08 20:17 | XR ---
EXAMINATION TYPE: XR chest 2V DATE OF EXAM: 11/08/2018 COMPARISON: None HISTORY: 73-year-old female cough and pain TECHNIQUE: PA and lateral views FINDINGS: ACDF hardware. Heart upper limits of normal in size. Slight elevation left hemidiaphragm with patchy left basilar opacity. Diffuse interstitial prominence is somewhat chronic appearance. IMPRESSION: 1. Borderline heart size. 2. Chronic appearing changes, possible bronchitis or asthma. 3. Some patchy left basilar opacity. Given suggestion of some volume loss at the left base, findings could represent atelectasis. Early infiltrate difficult to exclude.
[2018-11-08 20:33] LABS: Anisocytosis Slight; Basophils # (A) 0.1 k/uL (0-0.2); Basophils % (A) 1 %; Eosinophils # (A) 0.2 k/uL (0-0.7); Eosinophils % (A) 2 %; HCT 30.4 % (34.0-46.0); HGB 9.2 gm/dL (11.4-16.0); Hypochromasia Marked; Lymphocytes # (A) 3.4 k/uL (1.0-4.8); Lymphocytes % (A) 33 %; MCH 20.8 pg (25.0-35.0); MCHC 30.3 g/dL (31.0-37.0); MCV 68.7 fL (80.0-100.0); Mean Platelet Volume 7.3; Microcytosis Marked; Monocytes # (A) 0.5 k/uL (0-1.0); Monocytes % (A) 5 %; Neutrophils # (A) 5.8 k/uL (1.3-7.7); Neutrophils % (A) 57 %; Platelet Count 377 k/uL (150-450); Poikilocytosis Slight; RBC 4.43 m/uL (3.80-5.40); RDW 17.8 % (11.5-15.5); WBC 10.3 k/uL (3.8-10.6)
--- NOTE | 2018-11-08 21:07 | CT ---
EXAMINATION TYPE: CT angio abd aorta w/Runoff DATE OF EXAM: 11/08/2018 COMPARISON: None HISTORY: 73-year-old female Cardiac ablation 3 days ago. Fever, chills, leg bruising. Right foot swel ling and tingling. TECHNIQUE: Contiguous axial scanning of the abdomen and pelvis with bilateral lower extremity runoff performed with IV Contrast, patient injected with 100 mL of Isovue 370. Coronal/sagittal MIP reconstr uctions performed. 3-D reconstructions generated on a dedicated independent workstation. CT DLP: 1969.8 mGycm Automated exposure control for dose reduction was used. FINDINGS: Heart borderline enlarged. There is mild pericardial fluid along the base of the heart but with a rounded collection on the left measuring 3.5 cm just subjacent to the left pulmonary vein, axial image 7. Trace left pleural effusi on with left basilar atelectasis. Small hiatal hernia. Some postsurgical changes GE junction/proximal stomach, likely José-en-Y gastric bypass. Arterial phase imaging of the liver show some focal fat along the anterior falciform ligament. Promin ent bile duct likely due to postcholecystectomy status. Mild diffuse thickening of the adrenal glands without discrete nodularity. Hypodense right posterior upper pole renal lesion measuring 2.5 cm compatible with a cyst. Extensive atherosclerotic calcifications of the splenic artery. Tiny anterior superior splenules. Mot tled enhancement of the spleen compatible with arterial phase imaging. Moderate atherosclerotic calcifications abdominal aorta and iliac arteries. No aneurysm. No mesenteric or retroperitoneal lymphadenopathy. A nonspecific 1.2 cm nodule anterior left paramedian upper abdomen, axial images 35 of uncertain etio logy. Short interval follow-up recommended. Normal appendix. [id number] stool. Sigmoid diverticulosis. No pericolonic inflammatory change. Bladder is distended. Uterus surgically absent. Left ovary is visualized. Right ovary not clearly del ineated from bowel loops. No abnormal fluid collection the pelvis. Strandy density in the upper left femoral region and inguinal region suggesting prior catheterization. RIGHT LOWER EXTREMITY: The right common and superficial femoral arteries are patent. Dense streak artifact from patient's right total knee arthroplasty limits short segments of the popli teal artery. The visualized segments are widely patent. Tibial peroneal trunk is patent. Peroneal artery becomes diminutive at the mid lung level and is seen to just above the ankle. Two-ves dez runoff into the foot. LEFT LOWER EXTREMITY: Left common and superficial femoral arteries are patent with minimal atherosclerotic calcifications. Left popliteal artery is patent. The tibial peroneal trunk is patent. Peroneal artery becomes diminutive at the mid leg level and is seen to just above the ankle. Anterior tibial artery becomes somewhat diminutive distal third leg level but there is two-vessel run off into the foot. BONES: Subcutaneous soft tissue swelling within the legs and ankles. Degenerative changes throughout the visualized spine with grade 1 anterolisthesis at L4-L5. IMPRESSION: 1. TRACE LEFT PLEURAL EFFUSION. 2. THERE IS A ROUNDED 3.5 CM PERICARDIAL COLLECTION JUST SUBJACENT TO THE LEFT PULMONARY VEIN THAT CO ULD REPRESENT SOME LOCALIZED PERICARDIAL FLUID. LOCULATED FLUID COLLECTION A COMPLICATION OF CARDI AC ABLATION IS DIFFICULT TO ENTIRELY EXCLUDE AT THIS TIME. CORRELATE TO THE SITE OF ABLATION. 3. SUSPECTED SCARRING IN THE LEFT INGUINAL AND UPPER LEFT FEMORAL REGION PROBABLY RELATING TO CATHETE RIZATION. 4. THE BILATERAL PERONEAL ARTERIES BECOME DIMINUTIVE AT THE MID LEG LEVEL AND ARE SEEN TO JUST ABOVE THE ANKLE. TWO-VESSEL RUNOFF BILATERALLY. NO ARTERIAL OCCLUSION SEEN WITHIN THE BILATERAL LOWER EXTRE MITIES. 5. A NONSPECIFIC 1.2 CM NODULE LEFT PARAMEDIAN UPPER ABDOMEN OF UNCERTAIN ETIOLOGY. POSSIBLE ENLARGED LYMPH NODE. TWO-MONTH FOLLOW-UP CT RECOMMENDED TO REASSESS. 6. SIGMOID DIVERTICULOSIS.
--- NOTE | 2018-11-08 21:16 | US ---
EXAMINATION TYPE: US venous doppler duplex LE RT DATE OF EXAM: 11/08/2018 7:27 PM COMPARISON: NONE CLINICAL HISTORY: 73-year-old female Pain. Right leg pain, patient on blood thinners SIDE PERFORMED: Right TECHNIQUE: The lower extremity deep venous system is examined utilizing real time linear array sonog gokul with graded compression, doppler sonography and color-flow sonography. FINDINGS: VESSELS IMAGED: External Iliac Vein (EIV) Common Femoral Vein Deep Femoral Vein Greater Saphenous Vein * Femoral Vein Popliteal Vein Small Saphenous Vein * Proximal Calf Veins (* superficial vessels) Right Leg: Appears negative for DVT IMPRESSION: No evidence for DVT within the right lower extremity imaged from the groin to the upper calf.
[2018-11-08] MEDS ORDERED: RX INFO: IV CONTRAST WAS GIVEN 1 EACH MISC MISCELLANE PRN (22:33)
--- NOTE | 2018-11-08 23:40 | CT ---
EXAM: CT Chest With Intravenous Contrast CLINICAL HISTORY: ITS.REASON CT Reason: Pain TECHNIQUE: Axial computed tomography images of the chest with intravenous contrast. CTDI is 9 mGy and DLP is 349 mGy-cm. This CT exam was performed using one or more of the following dose reduction techniques: automated exposure control, adjustment of the mA and/or kV according to patient size, and/or use of iterative reconstruction technique. COMPARISON: Chest x-ray 11/08/18 FINDINGS: Lungs: No mass. No consolidation. Pleural space: No pneumothorax. Mild bilateral pleural effusions. Heart: Enlarged heart size without pericardial effusion. 2.9 cm low- density lesion along the left pericardium. Bones/joints: No acute fracture. Soft tissues: Mild hiatal hernia. Vasculature: Unremarkable. No thoracic aortic aneurysm. Lymph nodes: No enlarged lymph nodes. IMPRESSION: 1. Cardiomegaly with mild bilateral pleural effusions. 2. 2.9 cm low-density lesion along the left pericardium may represent a pericardial cyst.
[2018-11-08] MEDS ORDERED: NALOXONE 0.4 MG/ML 1 ML VIAL IV PRN (23:54)
--- NOTE | 2018-11-08 23:54 | ED ---
General Adult HPI - General Chief complaint: Recheck/Abnormal Lab/Rx Stated complaint: bruising post cardiac ablation Time Seen by Provider: 11/08/18 17:55 Source: patient Mode of arrival: wheelchair Limitations: no limitations - History of Present Illness Initial comments: The patient is is a 73-year-old female who presents to the emergency department with reported exertional shortness of breath and right lower extremity swelling. The patient reports that she had a cardiac ablation performed by Dr. Proctor on . Procedure was performed because of A. fib. They did access both sides of her groin for the procedure. States that she tolerated the procedure well and went home. She is continue to take her Coumadin as she was directed to. She was told to return to the emergency room for any bruising or swelling. The patient did note this morning that she had a bruise to the inside of her left groin. She also noted that her right lower extremity became swollen. She denies a history of DVTs or PEs. States her Coumadin has been therapeutic. She denies any pain in the right lower extremity. Does admit to mild tingling. She denies any chest pain. Denies any orthopnea. No fevers or chills. No palpitations. Denies ripping or tearing sensation to her back. She denies any changes in her bowel or bladder habits. No saddle anesthesia or bowel or bladder incontinence. There are no other alleviating, precipitating or modifyi ng factors - Related Data Home Medications Medication Instructions Recorded Confirmed Atenolol [Tenormin] 25 mg PO DAILY 03/31/14 11/08/18 Cholecalciferol [Vitamin D3 (25 1,000 unit PO DAILY 04/17/18 11/08/18 Mcg = 1000 Iu)] Cyanocobalamin (Vitamin B-12) 1,000 mcg PO DAILY 04/17/18 11/08/18 [Vitamin B-12] L.acidoph,Paracasei, B.lactis 1 cap PO DAILY 04/17/18 11/08/18 [Probiotic] Multivitamins, Thera [Multivitamin 1 tab PO DAILY 04/17/18 11/08/18 (formulary)] Warfarin Sodium 5 mg PO W/SUPPER 07/10/18 11/08/18 Docusate [Colace] 100 mg PO BID 11/08/18 11/08/18 Fluvastatin Sodium [Lescol] 80 mg PO DAILY 11/08/18 11/08/18 Previous Rx's Medication Instructions Recorded Colchicine [Colcrys] 0.6 mg PO BID #28 tablet 11/05/18 Flecainide [Tambocor] 50 mg PO Q12HR #90 tablet 11/05/18 Allergies Allergy/AdvReac Type Severity Reaction Status Date / Time lisinopril [From Zestril] AdvReac Cough Verified 11/08/18 18:13 morphine AdvReac Unknown Verified 11/08/18 18:13 [id number]-Nbh-Xyy Reductase AdvReac Cough Verified 11/08/18 18:13 Inhibitor Review of Systems ROS Statement: Those systems with pertinent positive or pertinent negative responses have been documented in the HPI. ROS Other: All systems not noted in ROS Statement are negative. Past Medical History Past Medical History: Atrial Fibrillation, CVA/TIA, GERD/Reflux, Hearing Disord er / Deafness, Hyperlipidemia, Hypertension, Memory Impairment, Osteoarthritis (OA), Pneumonia, Sleep Apnea/CPAP/BIPAP Additional Past Medical History / Comment(s): TREMORS FOR 5 YRS MOSTLY RIGHT ARM. TOLD SEVERAL TIA'S, PER MRI. USES CPAP. SOB with exertion. Hx prolapsed re ctum, constipation. History of Any Multi-Drug Resistant Organisms: None Reported Past Surgical History: Bariatric Surgery, Cardiac Ablation, Cholecystectomy, Hernia Repair, Hysterectomy, Joint Replacement, Orthopedic Surgery Additional Past Surgical History / Comment(s): BARIATRIC BYPASS, José-en-Y 05/2013. TOTAL RT KNEE X2. LT ROTATOR CUFF REPAIR. HIATAL HERNIA REPAIR X2. SINUS SURGERY, CERVICAL FUSION, cataracts bilateral.PROLAPSED RECTUM SX. Past Anesthesia/Blood Transfusion Reactions: Previous Problems w/ Anesthesia, Postoperative Nausea & Vomiting (PONV) Additional Past Anesthesia/Blood Transfusion Reaction / Comment(s): SLOW TO AWAKEN FROM ANESTHESIA. Past Psychological History: Anxiety, Depression Smoking Status: Never smoker Past Alcohol Use History: None Reported Past Drug Use History: None Reported - Past Family History Father Family Medical History: Myocardial Infarction ([place]) Additional Family Medical History / Comment(s): TUBERCULOSIS Mother Family Medical History: Congestive Heart Failure (CHF), CVA/TIA, Myocardial Infarction ([place]) General Exam Limitations: no limitations General appearance: alert, in no apparent distress Head exam: Present: atraumatic, normocephalic, normal inspection Eye exam: Present: normal appearance, PERRL, EOMI. Absent: scleral icterus, conjunctival injection, periorbital swelling ENT exam: Present: normal exam, mucous membranes moist Neck exam: Present: normal inspection. Absent: tenderness, meningismus, lymphadenopathy Respiratory exam: Present: normal lung sounds bilaterally. Absent: respiratory distress, wheezes, rales, rhonchi, stridor Cardiovascular Exam: Present: regular rate, normal rhythm, normal heart sounds. Absent: systolic murmur, diastolic murmur, rubs, gallop, clicks GI/Abdominal exam: Present: soft, normal bowel sounds. Absent: distended, tenderness, guarding, rebound, rigid Extremities exam: Present: normal inspection, full ROM, normal capillary refill, pedal edema (right extremity), other (2+ DP and PT pulses bilaterally. No cyanosis. Compartments are soft). Absent: tenderness, joint swelling, calf tenderness Back exam: Present: normal inspection Neurological exam: Present: alert, oriented X3, CN II-XII intact Psychiatric exam: Present: normal affect, normal mood Skin exam: Present: warm, dry, intact, normal color, other (ecchymosis, left medial thigh). Absent: rash Course Vital Signs 11/08/18 11/09/18 17:53 00:09 Temperature 98.2 F 98.2 F Pulse Rate 58 L 63 Respiratory 18 18 Rate Blood Pressure 150/77 139/67 O2 Sat by Pulse 97 97 Oximetry Medical Decision Making - Medical Decision Making Upon arrival the patient is placed into room 7. She is hooked up to continuous pulse ox and cardiac monitoring. A 12-lead EKG was performed the patient which demonstrates no acute findings. Laboratory studies were conducted. I did send the patient for a venous Doppler of her right lower extremity. I also performed a CT angios of her abdomen and pelvis with runoff to rule out anerysm/ hematoma. Upon return of the results they are discussed with the patient. Multiple exami nations of the patient's right lower extremity demonstrated bounding pulses. I did discuss with patient that her INR is elevated at 3.8 at this time. I did recommend holding the medication tonight. The CT of the patient's abdomen and pelvis demonstrated a trace left pleural effusion. There is a rounded 3.5 cm pericardial collection just subadjacent to the left pulmonary vein which could represent some localized pericardial fluid. Loculate fluid collection as a complication of cardiac ablation is difficult to entirely exclude. Suspected is scarring in the left inguinal and upper left femoral region. No arterial occlusion seen within the bilateral lower extremities. Nonspecific 1.2 similar nodule in the left paramedian upper abdomen. Sigmoid diverticulosis. Because of these results I did recommend hospital admission. I did call discuss case with Dr. Leal at [phone]. He does request I call Dr. Mariscal. I did talk to Dr. Mariscal [phone]. He does recommend a CT of the patient's thorax. The patient is sent back over for CT. does demonstrate cardiomegaly with mild bilateral pleural effusions. A 2.9 cm low density lesion along the left pericardium represent a pericardial cyst. I did discuss this with the patient and she did agree to hospital admission. The patient remained in stable condition was transported to the floor - Lab Data Result diagrams: 11/10/18 05:49 11/09/18 07:25 Lab Results 11/08/18 11/08/18 11/08/18 Range/Units 19:40 19:40 19:40 WBC 10.3 (3.8-10.6) k/uL RBC 4.43 (3.80-5.40) m/uL Hgb 9.2 L (11.4-16.0) gm/dL Hct 30.4 L (34.0-46.0) % MCV 68.7 L (80.0-100.0) fL MCH 20.8 L (25.0-35.0) pg MCHC 30.3 L (31.0-37.0) g/dL RDW 17.8 H (11.5-15.5) % Plt Count 377 (150-450) k/uL Neutrophils % 57 % Lymphocytes % 33 % Monocytes % 5 % Eosinophils % 2 % Basophils % 1 % Neutrophils # 5.8 (1.3-7.7) k/uL Lymphocytes # 3.4 (1.0-4.8) k/uL Monocytes # 0.5 (0-1.0) k/uL Eosinophils # 0.2 (0-0.7) k/uL Basophils # 0.1 (0-0.2) k/uL Hypochromasia Marked Poikilocytosis Slight Anisocytosis Slight Microcytosis Marked PT (9.0-12.0) sec INR (<1.2) APTT (22.0-30.0) sec Sodium 138 (137-145) mmol/L Potassium 4.3 (3.5-5.1) mmol/L Chloride 106 (98-107) mmol/L Carbon Dioxide 25 (22-30) mmol/L Anion Gap 7 mmol/L BUN 21 H (7-17) mg/dL Creatinine 0.67 (0.52-1.04) mg/dL Est GFR (CKD-EPI)AfAm >90 (>60 ml/min/1.73 sqM) Est GFR (CKD-EPI)NonAf 88 (>60 ml/min/1.73 sqM) Glucose 88 (74-99) mg/dL Calcium 9.4 (8.4-10.2) mg/dL Total Bilirubin 0.2 (0.2-1.3) mg/dL AST 33 (14-36) U/L ALT 25 (9-52) U/L Alkaline Phosphatase 101 (38-126) U/L NT-Pro-B Natriuret Pep 645 pg/mL Total Protein 6.8 (6.3-8.2) g/dL Albumin 3.7 (3.5-5.0) g/dL 11/08/18 Range/Units 19:40 WBC (3.8-10.6) k/uL RBC (3.80-5.40) m/uL Hgb (11.4-16.0) gm/dL Hct (34.0-46.0) % MCV (80.0-100.0) fL MCH (25.0-35.0) pg MCHC (31.0-37.0) g/dL RDW (11.5-15.5) % Plt Count (150-450) k/uL Neutrophils % % Lymphocytes % % Monocytes % % Eosinophils % % Basophils % % Neutrophils # (1.3-7.7) k/uL Lymphocytes # (1.0-4.8) k/uL Monocytes # (0-1.0) k/uL Eosinophils # (0-0.7) k/uL Basophils # (0-0.2) k/uL Hypochromasia Poikilocytosis Anisocytosis Microcytosis PT 36.8 H (9.0-12.0) sec INR 3.8 H (<1.2) APTT 35.6 H (22.0-30.0) sec Sodium (137-145) mmol/L Potassium (3.5-5.1) mmol/L Chloride (98-107) mmol/L Carbon Dioxide (22-30) mmol/L Anion Gap mmol/L BUN (7-17) mg/dL Creatinine (0.52-1.04) mg/dL Est GFR (CKD-EPI)AfAm (>60 ml/min/1.73 sqM) Est GFR (CKD-EPI)NonAf (>60 ml/min/1.73 sqM) Glucose (74-99) mg/dL Calcium (8.4-10.2) mg/dL Total Bilirubin (0.2-1.3) mg/dL AST (14-36) U/L ALT (9-52) U/L Alkaline Phosphatase (38-126) U/L NT-Pro-B Natriuret Pep pg/mL Total Protein (6.3-8.2) g/dL Albumin (3.5-5.0) g/dL Disposition Clinical Impression: Right leg swelling, Supratherapeutic INR, History of cardiac radiofrequency ablation, Paroxysmal a-fib Disposition: ADMITTED IP TO THIS [facility] Condition: Stable Is patient prescribed a controlled substance at d/c from ED?: No Decision to Admit Reason: Admit from EC Decision Date: 11/08/18 Decision Time: 23:54
[2018-11-09] MEDS ORDERED: SODIUM CHLORIDE 0.9% 500 ML 500 ML IV ONE (01:17)
[2018-11-09 07:46] LABS: Anisocytosis Slight; Basophils # (A) 0.1 k/uL (0-0.2); Basophils % (A) 1 %; Eosinophils # (A) 0.1 k/uL (0-0.7); Eosinophils % (A) 1 %; HCT 25.7 % (34.0-46.0); Hypochromasia Marked; Lymphocytes # (A) 1.7 k/uL (1.0-4.8); Lymphocytes % (A) 26 %; MCH 20.7 pg (25.0-35.0); MCHC 29.5 g/dL (31.0-37.0); MCV 70.3 fL (80.0-100.0); Mean Platelet Volume 7.6; Microcytosis Marked; Monocytes # (A) 0.3 k/uL (0-1.0); Monocytes % (A) 5 %; Neutrophils # (A) 4.2 k/uL (1.3-7.7); Neutrophils % (A) 65 %; Platelet Count 305 k/uL (150-450); Poikilocytosis Slight; RBC 3.66 m/uL (3.80-5.40); RDW 17.7 % (11.5-15.5); WBC 6.6 k/uL (3.8-10.6)
[2018-11-09 07:52] LABS: HGB 7.6 gm/dL (11.4-16.0)
[2018-11-09 08:36] LABS: African American GFR (CKD) >90 (>60 ml/min/1.73 sqM); Anion Gap 6 mmol/L; Blood Urea Nitrogen 15 mg/dL (7-17); Calcium 9.5 mg/dL (8.4-10.2); Carbon Dioxide 27 mmol/L (22-30); Chloride 107 mmol/L (98-107); Glucose 103 mg/dL (74-99); Potassium 3.7 mmol/L (3.5-5.1); Sodium 140 mmol/L (137-145)
[2018-11-09] MEDS: COLCHICINE 0.6 MG EACH PO SCH ×2 (09:34→21:07)
[2018-11-09] MEDS: FLECAINIDE 50 MG TAB PO SCH ×2 (09:34→21:07)
[2018-11-09] MEDS: ATENOLOL 25 MG TAB PO SCH (09:34)
[2018-11-09] MEDS: FLUVASTATIN SODIUM 80 MG PO SCH (09:39)
[2018-11-09] MEDS: CYANOCOBALAMIN 500 MCG TAB PO SCH (11:36)
[2018-11-09] MEDS: MULTIVITAMINS, THERA 1 EACH TAB PO SCH (11:36)
[2018-11-09 11:47] LABS: INR 3.5 (<1.2)
--- NOTE | 2018-11-09 12:52 | CONS ---
CONSULTATION CHIEF COMPLAINT: Shortness of breath. Michelle is a 73-year-old lady with history of atrial fibrillation status post recent ablation that presented to [facility] initially because she found ecchymosis over both her legs and also complained of right leg swelling and had some shortness of breath. The right foot swelling is related to recent trauma and this is actually improved since she got here. Ecchymosis is related to the bilateral groin access and does not really have much ecchymosis. She underwent a CT scan of the abdomen and pelvis which showed some fluid accumulation around her left pulmonary vein. Went on to have a CT scan of the chest that showed what appeared like a pericardial cyst. The patient is doing well. Has not had any fever. Remains in sinus rhythm and is hemodynamically stable and does not have any shortness of breath and leg edema had improved. PAST MEDICAL HISTORY: Significant for chronic atrial fibrillation status post ablation. MEDICATIONS: Medications at home include to Jamie 25 mg daily, Tambocor 50 daily q.12 and vitamin B12. She was on Coumadin and Coumadin is on hold as her INR was elevated at 3.8. Her hemoglobin was around 9.3 prior to surgery and it is down to 7.6. SOCIAL HISTORY: Negative for smoking, EtOH abuse or drug abuse. REVIEW OF SYSTEMS: HEENT is unremarkable. CARDIAC as described above. RESPIRATORY as described above. GENITOURINARY negative. ALLERGY/IMMUNOLOGY negative. SKIN negative. ENDOCRINE negative. DERM negative. CONSTITUTIONAL negative. ONCOLOGICAL negative. EXAM: Comfortable at rest. Heart rate is 60 beats per minute. Blood pressure is 134/60, respiratory rate is 18. There is no jugular venous distention. Carotid upstroke is normal. There is no bruit. Chest exam reveals good air entry bilaterally. Heart exam reveals first and second heart sounds. No gallop. No murmur. No rub. Abdomen is soft. Exam of extremities reveals mild edema over the right foot with ecchymosis that is probably related to the recent trauma. Pulses are palpable on both sides. She had a venous duplex of the right leg that was negative for DVT. Had a CT scan of the chest, abdomen and pelvis. I reviewed the information. She had mild troponin elevation and this is probably related to the recent ablation. ASSESSMENT: 1. Chronic atrial fibrillation status post ablation. 2. Abnormal fluid accumulation around the left pulmonary vein, exact etiology is unclear. Could be related to recent ablation or this could represent a pericardial cyst as had been documented on the CT chest. Will observe her clinically. 3. Right foot swelling, probably related to recent trauma. 4. Anemia. The exact source of blood loss is unclear. Could be related to recent surgical procedures. PLAN: Will watch the patient overnight, obtain an INR today and if the INR is coming down will resume the Coumadin. Will follow CBC in the morning. MMODL / IJN: [id number] /
--- NOTE | 2018-11-09 15:41 | P.HPIM ---
History of Present Illness H&P Date: 11/09/18 Chief Complaint: Bruising in the left groin History of presenting complaint: This is a pleasant 73-year-old patient of Dr. Alan Livingston. On that is 4 days ago she went ablation by Dr. weaver for atrial fibrillation. [place] was done through both the thighs. Patient when she went home noticed that there was bruising there was increasing in the left thigh. And it progressed to got worse. Patient also noticed some fever and chills at home. Had a slight cough. No sputum production. Also a few days ago patient dropped 5 did not plates on the right foot. He noticed some swelling from there. Which actually improved. Patient did have in the ER computed tomography scan of the chest CT angiogram is Doppler that did not show any aneurysm and there was no PE. Overall otherwise patient is feeling stable and better. Was eating her lunch when I saw this a fternoon. Review of systems: GEN.: None EYES: None HEENT: None NECK: None RESPIRATORY: As above CARDIOVASCULAR: None GASTROINTESTINAL: None GENITOURINARY: None MUSCULOSKELETAL: None LYMPHATICS: None HEMATOLOGICAL: Bruising left thigh PSYCHIATRY: None NEUROLOGICAL: None Past medical history: Atrial fibrillation, GERD, hyperlipidemia, hypertension, Artie arthritis, sleep apnea, some tremors of the right arm, several TIAs, sleep apnea uses CPAP,. Social history: Does not smoke or drink alcohol. Family history: [place], tuberculosis Physical examination: VITAL SIGNS: 98.2, 58, 18, 150/77, 97% room air GENERAL: BMI 35.3, sitting up in a chair, comfortable eating a lunch. EYES: Pupils equal. Conjunctiva normal. HEENT: External appearance of nose and ears normal, oral cavity grossly normal. NECK: JVD not raised; masses not palpable. HEART: First and second heart sounds are normal; no edema. LUNGS: Respiratory rate normal; clear to auscultation. ABDOMEN: Soft, nontender, liver spleen not palpable, no masses palpable. PSYCH: Alert and oriented x3; mood and affect normal. NEUROLOGICAL: Cranial nerves grossly intact; no facial asymmetry, power and sensation grossly intact. LYMPHATICS: No lymph nodes palpable in the axilla and neck Extremities: Bruising in the left inner thigh. No tenderness INVESTIGATIONS, reviewed in the clinical context: White count 10.3 hemoglobin 9.2 repeat this morning 7.6 platelets 377 INR 3.8 creatinine 0.67 Troponin I 0.7, 0.5 Chest CTA-heart enlarged with no pericardial effusion. 2.9 cm low density lesion along the left pericardium CT angiogram abdominal aortic with run off-to 3.5 cm pericardial collection just subside just sent to the left pulmonary vein that could represent some localized pericardial fluid localized fluid collection difficult to entirely exclude. No arterial occlusion in the bilateral lower extremity. Sigmoid diverticulosis Doppler ultrasound right lower extremity negative for DVT Chest x-ray film personally reviewed by me-possible some chronic changes Assessment: -Acute blood loss anemia given 2 units of drop of hemoglobin. Patient was on Coumadin. Perioperative time period may have had some localized bleeding at the left groin puncture site and that would explain patient's loss of hemoglobin. -Right foot swelling could be from the trauma from dropping plates a few days ago. -Possible viral bronchitis. -3.5 cm pericardial collection-we will have cardiology follow the same. -Atrial fibrillation now status post ablation. Currently on Coumadin. -GERD -Hyperlipidemia -Essential hypertension -Primary osteoarthritis -Obstructive sleep apnea uses CPAP - Plan: Cardiology was consulted. We'll also get a vascular opinion. Told the nurse- aide to Alan off the bruising on the left thigh. Repeat CBC in the morning. Otherwise patient looking well right now. Past Medical History Past Medical History: Atrial Fibrillation, CVA/TIA, GERD/Reflux, Hearing Disord er / Deafness, Hyperlipidemia, Hypertension, Memory Impairment, Osteoarthritis (OA), Pneumonia, Sleep Apnea/CPAP/BIPAP Additional Past Medical History / Comment(s): TREMORS FOR 5 YRS MOSTLY RIGHT ARM. TOLD SEVERAL TIA'S, PER MRI. USES CPAP. SOB with exertion. Hx prolapsed re ctum, constipation. History of Any Multi-Drug Resistant Organisms: None Reported Past Surgical History: Bariatric Surgery, Cardiac Ablation, Cholecystectomy, Hernia Repair, Hysterectomy, Joint Replacement, Orthopedic Surgery Additional Past Surgical History / Comment(s): BARIATRIC BYPASS, [place] 05/2013. TOTAL RT KNEE X2. LT ROTATOR CUFF REPAIR. HIATAL HERNIA REPAIR X2. SINUS SURGERY, CERVICAL FUSION, cataracts bilateral.PROLAPSED RECTUM SX. Past Anesthesia/Blood Transfusion Reactions: Previous Problems w/ Anesthesia, Postoperative Nausea & Vomiting (PONV) Additional Past Anesthesia/Blood Transfusion Reaction / Comment(s): SLOW TO AWAKEN FROM ANESTHESIA. Past Psychological History: Anxiety, Depression Smoking Status: Never smoker Past Alcohol Use History: None Reported Past Drug Use History: None Reported - Past Family History Father Family Medical History: Myocardial Infarction ([place]) Additional Family Medical History / Comment(s): TUBERCULOSIS Mother Family Medical History: Congestive Heart Failure (CHF), CVA/TIA, Myocardial Infarction ([place]) Medications and Allergies Home Medications Medication Instructions Recorded Confirmed Type Atenolol [Tenormin] 25 mg PO DAILY 03/31/14 11/08/18 History Cholecalciferol [Vitamin D3 (25 1,000 unit PO DAILY 04/17/18 11/08/18 History Mcg = 1000 Iu)] Cyanocobalamin (Vitamin B-12) 1,000 mcg PO DAILY 04/17/18 11/08/18 History [Vitamin B-12] L.acidoph,Paracasei, B.lactis 1 cap PO DAILY 04/17/18 11/08/18 History [Probiotic] Multivitamins, Thera [Multivitamin 1 tab PO DAILY 04/17/18 11/08/18 History (formulary)] Warfarin Sodium 5 mg PO W/SUPPER 07/10/18 11/08/18 History Colchicine [Colcrys] 0.6 mg PO BID #28 tablet 11/05/18 11/08/18 Rx Flecainide [Tambocor] 50 mg PO Q12HR #90 tablet 11/05/18 11/08/18 Rx Docusate [Colace] 100 mg PO BID 11/08/18 11/08/18 History Fluvastatin Sodium [Lescol] 80 mg PO DAILY 11/08/18 11/08/18 History Allergies Allergy/AdvReac Type Severity Reaction Status Date / Time lisinopril [From Zestril] AdvReac Cough Verified 11/08/18 18:13 morphine AdvReac Unknown Verified 11/08/18 18:13 [id number] Reductase AdvReac Cough Verified 11/08/18 18:13 Inhibitor Physical Exam Vitals: Vital Signs Temp Pulse Pulse Resp BP BP Pulse Ox 11/09/18 11:39 98.2 F 52 L 18 146/63 96 11/09/18 09:30 98.9 F 62 18 134/63 95 11/09/18 04:00 97.9 F 83 18 147/66 94 L 11/09/18 00:09 98.2 F 63 18 139/67 97 11/08/18 17:53 98.2 F 58 L 18 150/77 97 Intake and Output 11/09/18 11/09/18 11/09/18 06:59 14:59 22:59 Intake Total 440 240 Output Total 200 Balance 240 240 Intake: Oral 440 240 Output: Urine 200 Other: Voiding Method Toilet Toilet # Bowel Movements 1 Results CBC & Chem 7: 11/09/18 07:25 11/09/18 07:25 Labs: Abnormal Lab Results - Last 24 Hours (Table) 11/08/18 11/08/18 11/08/18 Range/Units 19:40 19:40 19:40 RBC (3.80-5.40) m/uL Hgb 9.2 L (11.4-16.0) gm/dL Hct 30.4 L (34.0-46.0) % MCV 68.7 L (80.0-100.0) fL MCH 20.8 L (25.0-35.0) pg MCHC 30.3 L (31.0-37.0) g/dL RDW 17.8 H (11.5-15.5) % PT 36.8 H (9.0-12.0) sec INR 3.8 H (<1.2) APTT 35.6 H (22.0-30.0) sec BUN 21 H (7-17) mg/dL Glucose (74-99) mg/dL Troponin I (0.000-0.034) ng/mL 11/09/18 11/09/18 11/09/18 Range/Units 01:37 07:25 07:25 RBC 3.66 L (3.80-5.40) m/uL Hgb 7.6 L D (11.4-16.0) gm/dL Hct 25.7 L (34.0-46.0) % MCV 70.3 L (80.0-100.0) fL MCH 20.7 L (25.0-35.0) pg MCHC 29.5 L (31.0-37.0) g/dL RDW 17.7 H (11.5-15.5) % PT (9.0-12.0) sec INR (<1.2) APTT (22.0-30.0) sec BUN (7-17) mg/dL Glucose 103 H (74-99) mg/dL Troponin I 0.742 H* (0.000-0.034) ng/mL 11/09/18 11/09/18 Range/Units 07:25 11:32 RBC (3.80-5.40) m/uL Hgb (11.4-16.0) gm/dL Hct (34.0-46.0) % MCV (80.0-100.0) fL MCH (25.0-35.0) pg MCHC (31.0-37.0) g/dL RDW (11.5-15.5) % PT 34.0 H (9.0-12.0) sec INR 3.5 H (<1.2) APTT (22.0-30.0) sec BUN (7-17) mg/dL Glucose (74-99) mg/dL Troponin I 0.574 H* (0.000-0.034) ng/mL Thrombosis Risk Factor Assmnt - Choose All That Apply Each Factor Represents 1 point: Obesity (BMI >25), Swollen legs (current) Each Risk Factor Represents 2 Points: Age 61-74 years Thrombosis Risk Factor Assessment Total Risk Factor Score: 4 Thrombosis Risk Factor Assessment Level: Moderate Risk
--- NOTE | 2018-11-10 01:59 | CONS ---
DATE OF CONSULTATION: 11/09/2018 This is a 73-year-old, pleasant female. She has been admitted with history of ecchymosis post venous ablation of the heart, left groin area. The patient had some discomfort and has been admitted for further evaluation. The patient also has lost some hemoglobin. The patient had ultrasound done. There is no evidence of deep vein thrombosis. PHYSICAL EXAMINATION: Patient was seen in her room, lying comfortably in bed. NECK: Supple. Trachea central. CHEST: Clear. ABDOMEN: Soft. Femoral pulses are present. Dorsal pedis is palpable. The patient has some ecchymosis noted in the right thigh area. No evidence of compromise hematoma noted. The patient is stable from a vascular point of view. MMODL / IJN: [id number] / MTDD
[2018-11-10 06:17] LABS: Anisocytosis Slight; Basophils # (A) 0.1 k/uL (0-0.2); Basophils % (A) 1 %; Eosinophils # (A) 0.2 k/uL (0-0.7); Eosinophils % (A) 3 %; HCT 26.1 % (34.0-46.0); HGB 7.6 gm/dL (11.4-16.0); Hypochromasia Marked; Lymphocytes # (A) 2.2 k/uL (1.0-4.8); Lymphocytes % (A) 29 %; MCH 20.4 pg (25.0-35.0); MCV 70.2 fL (80.0-100.0); Mean Platelet Volume 7.7; Microcytosis Marked; Monocytes # (A) 0.4 k/uL (0-1.0); Monocytes % (A) 5 %; Neutrophils # (A) 4.5 k/uL (1.3-7.7); Neutrophils % (A) 61 %; Platelet Count 321 k/uL (150-450); RBC 3.72 m/uL (3.80-5.40); RDW 17.5 % (11.5-15.5); WBC 7.4 k/uL (3.8-10.6)
[2018-11-10] MEDS: COLCHICINE 0.6 MG EACH PO SCH (08:53)
[2018-11-10] MEDS: FLECAINIDE 50 MG TAB PO SCH (08:53)
[2018-11-10] MEDS: ATENOLOL 25 MG TAB PO SCH (08:53)
[2018-11-10] MEDS: CYANOCOBALAMIN 500 MCG TAB PO SCH (08:54)
[2018-11-10] MEDS: MULTIVITAMINS, THERA 1 EACH TAB PO SCH (08:54)
[2018-11-10] MEDS ORDERED: ACETAMINOPHEN TAB 325 MG TAB PO PRN (09:03)
[2018-11-10] MEDS: FLUVASTATIN SODIUM 80 MG PO SCH (09:58)
[2018-11-10 12:33] VITALS: RESP 16
[2018-11-10 16:50] VITALS: BP 128/61; PULSE 55; TEMP 98.6
--- NOTE | 2018-11-10 22:27 | PN ---
PROGRESS NOTE This patient is status post recent ablation. Patient came with swelling. The patient had an injury to the right foot and also swelling and ecchymosis in the left foot. The patient is doing well. The CT scan of the chest is suggestive of possible pericardial cyst. There is no evidence of any DVT. Vascular doctor consultation is noted. MMODL / IJN: [id number] /
--- NOTE | 2018-11-10 22:36 | PN ---
PROGRESS NOTE This patient is status post recent ablation. Patient came with swelling. The patient had an injury to the right foot and also swelling and ecchymosis in the left foot. The patient is doing well. The CT scan of the chest is suggestive of possible pericardial cyst. There is no evidence of any DVT. Vascular Dr. Kwok consultation is noted. The patient is doing well. Patient hemoglobin has dropped to 7.6, exact etiology undetermined. The patient is discharged home today and patient would follow up with Dr. Proctor as outpatient. She will have a repeat CBC done in next few days. MMODL / IJN: [id number] /
--- NOTE | 2018-11-11 00:14 | P.DS ---
Providers Date of admission: 11/09/18 00:00 Expected date of discharge: 11/11/18 Attending physician: Eddie Leal Consults: 11/08/18 23:56 Consult Physician Urgent Consulting Provider: Dominick Proctor Consult Reason/Comments: acute respiratory insufficiency, s/p cardiac ablation Do you want consulting provider notified?: Yes 11/09/18 10:32 Consult Physician Routine Consulting Provider: Antione Kwok Consult Reason/Comments: r leg swelling/post-procedure Do you want consulting provider notified?: Yes Primary care physician: Alan Davila [facility] Course: Chief Complaint: Bruising in the left groin Hospital course: This is a pleasant 73-year-old patient of Dr. Alan Livingston. On that is 4 days ago she went ablation by Dr. weaver for atrial fibrillation. [place] was done through both the thighs. Patient when she went home noticed that there was bruising there was increasing in the left thigh. And it progressed to got worse. Patient also noticed some fever and chills at home. Had a slight cough. No sputum production. Also a few days ago patient dropped 5 did not plates on the right foot. He noticed some swelling from there. Which actually improved. Patient did have in the ER computed tomography scan of the chest CT angiogram is Doppler that did not show any aneurysm and there was no PE. Overall otherwise patient is feeling stable and better. Was eating her lunch when I saw this afternoon. Patient did drop about 2 units of hemoglobin from a baseline.'s possible lost some blood in the left thigh area. There was no further increase of bruising. Negative for PE. Negative for DVT. Doing well on the day of discharge. Patient's computed tomography scan chest was discussed Dr. VC [place]. THE patient to be discharged. Repeat CBC in 2 days. Patient is otherwise feeling really well very keen to go home. Also seen by vascular surgery Dr. Corral. HER discharge. Discharge and discussion more than 35 minutes Consultation: Dr. Corral from vascular Dr. VC [place]/Dr. Lynn from cardiology Physical examination: VITAL SIGNS: 98.6, 55, 16, 1 28 x 61, 95% room air GENERAL: BMI 35.3, sitting up in a chair, comfortable eating a lunch. EYES: Pupils equal. Conjunctiva normal. HEENT: External appearance of nose and ears normal, oral cavity grossly normal. NECK: JVD not raised; masses not palpable. HEART: First and second heart sounds are normal; no edema. LUNGS: Respiratory rate normal; clear to auscultation. ABDOMEN: Soft, nontender, liver spleen not palpable, no masses palpable. PSYCH: Alert and oriented x3; mood and affect normal. Extremities: Bruising in the left inner thigh. No tenderness, improved INVESTIGATIONS, reviewed in the clinical context: White count 10.3 hemoglobin 9.2 repeat this morning 7.6 platelets 377 INR 3.8 creatinine 0.67 Troponin I 0.7, 0.5 Chest CTA-heart enlarged with no pericardial effusion. 2.9 cm low density lesion along the left pericardium CT angiogram abdominal aortic with run off-to 3.5 cm pericardial collection just subside just sent to the left pulmonary vein that could represent some localized pericardial fluid localized fluid collection difficult to entirely exclude. No arterial occlusion in the bilateral lower extremity. Sigmoid diverticulosis Doppler ultrasound right lower extremity negative for DVT Chest x-ray film personally reviewed by me-possible some chronic changes Assessment: -Acute blood loss anemia given 2 units of drop of hemoglobin. Patient was on Coumadin. Perioperative period may have had some localized bleeding at the left groin puncture site and that would explain patient's loss of hemoglobin. -Right foot swelling could be from the trauma from dropping dinner plates a few days ago. -Possible viral bronchitis. -3.5 cm pericardial collection-we will have cardiology follow the same. Possibly pericardial cyst. -Atrial fibrillation now status post ablation. Currently on Coumadin. -GERD -Hyperlipidemia -Essential hypertension -Primary osteoarthritis -Obstructive sleep apnea uses CPAP - Disposition: Home Patient Condition at Discharge: Stable Plan - Discharge Summary Discharge Rx Participant: No New Discharge Prescriptions: Continue Atenolol [Tenormin] 25 mg PO DAILY L.acidoph,Paracasei, B.lactis [Probiotic] 1 cap PO DAILY Cholecalciferol [Vitamin D3 (25 Mcg = 1000 Iu)] 1,000 unit PO DAILY Multivitamins, Thera [Multivitamin (formulary)] 1 tab PO DAILY Cyanocobalamin (Vitamin B-12) [Vitamin B-12] 1,000 mcg PO DAILY Warfarin Sodium 5 mg PO W/SUPPER Colchicine [Colcrys] 0.6 mg PO BID #28 tablet Flecainide [Tambocor] 50 mg PO Q12HR #90 tablet Fluvastatin Sodium [Lescol] 80 mg PO DAILY Docusate [Colace] 100 mg PO BID Discharge Medication List Atenolol [Tenormin] 25 mg PO DAILY 03/31/14 [History] Cholecalciferol [Vitamin D3 (25 Mcg = 1000 Iu)] 1,000 unit PO DAILY 04/17/18 [History] Cyanocobalamin (Vitamin B-12) [Vitamin B-12] 1,000 mcg PO DAILY 04/17/18 [History] L.acidoph,Paracasei, B.lactis [Probiotic] 1 cap PO DAILY 04/17/18 [History] Multivitamins, Thera [Multivitamin (formulary)] 1 tab PO DAILY 04/17/18 [History] Warfarin Sodium 5 mg PO W/SUPPER 07/10/18 [History] Colchicine [Colcrys] 0.6 mg PO BID #28 tablet 11/05/18 [Rx] Flecainide [Tambocor] 50 mg PO Q12HR #90 tablet 11/05/18 [Rx] Docusate [Colace] 100 mg PO BID 11/08/18 [History] Fluvastatin Sodium [Lescol] 80 mg PO DAILY 11/08/18 [History] Follow up Appointment(s)/Referral(s): Moe Wu MD [STAFF PHYSICIAN] - 11/16/18 8:45 am (With Grace FERNANDO. Please keep this appointment for follow up with cardiology.) Alan Davila DO [Primary Care Provider] - 11/17/18 10:30 am Ambulatory/Diagnostic Orders: Complete Blood Count w/diff [LAB.AMB] Time Frame: 2 Days, Location: None Selected Complete Blood Count w/diff [LAB.AMB] Time Frame: 2 Days, Location: None Selected Prothrombin Time INR [LAB.AMB] Time Frame: 6 Days, Location: None Selected Patient Instructions/Handouts: Iron Rich Diet (DC), Vitamin K in Foods (DC), Anemia (DC), Hematoma (ED) Discharge Disposition: HOME SELF-CARE
== END 2018-11-10 17:14 | disposition home or self-care (01) ==
LOC: EC 17:51 → 3SCARD 11-09
PROVIDERS: ADMIT Hospitalist; ATTEND Hospitalist
DX: D62 Acute posthemorrhagic anemia (principal); S70.12XA Contusion of left thigh, initial encounter; I48.2 Chronic atrial fibrillation; Z98.890 Other specified postprocedural states; R22.41 Localized swelling, mass and lump, right lower limb; R20.2 Paresthesia of skin; K21.9 Gastro-esophageal reflux disease without esophagitis; I11.9 Hypertensive heart disease without heart failure; H91.90 Unspecified hearing loss, unspecified ear; G47.33 Obstructive sleep apnea (adult) (pediatric); E78.5 Hyperlipidemia, unspecified; R41.3 Other amnesia; F41.9 Anxiety disorder, unspecified; R77.8 Other specified abnormalities of plasma proteins; R79.1 Abnormal coagulation profile; J90 Pleural effusion, not elsewhere classified; K59.00 Constipation, unspecified; I31.8 Other specified diseases of pericardium; Z99.89 Dependence on other enabling machines and devices; F32.9 Major depressive disorder, single episode, unspecified; M19.90 Unspecified osteoarthritis, unspecified site; R50.9 Fever, unspecified; R25.1 Tremor, unspecified; K57.30 Diverticulosis of large intestine without perforation or abscess without bleeding; M19.91 Primary osteoarthritis, unspecified site; E66.9 Obesity, unspecified; Z68.35 Body mass index [BMI] 35.0-35.9, adult; Z79.01 Long term (current) use of anticoagulants; Z79.899 Other long term (current) drug therapy; Z88.5 Allergy status to narcotic agent; Z88.8 Allergy status to other drugs, medicaments and biological substances; Z86.73 Personal history of transient ischemic attack (TIA), and cerebral infarction without residual deficits; Z90.49 Acquired absence of other specified parts of digestive tract; Z98.84 Bariatric surgery status; Z98.41 Cataract extraction status, right eye; Z98.42 Cataract extraction status, left eye; Z96.651 Presence of right artificial knee joint; Z90.710 Acquired absence of both cervix and uterus; Z98.1 Arthrodesis status; Z82.49 Family history of ischemic heart disease and other diseases of the circulatory system; Z83.1 Family history of other infectious and parasitic diseases
CPT/HCPCS: 99285; 36415; 83880; 80053; 80048; 84484; 85025 ×3; 85610 ×2; 85730; 71046; 93971; 71260; 75635; G0378 ×2; Q9967 ×2

== ENCOUNTER → 2018-11-12 | Outpatient (CLI) | payer MEDICARE, BC ==
[2018-11-12 11:34] LABS: Anisocytosis Slight; Basophils % (A) 1 %; Eosinophils # (A) 0.2 k/uL (0-0.7); Eosinophils % (A) 2 %; HCT 27.3 % (34.0-46.0); Hypochromasia Marked; Lymphocytes # (A) 1.8 k/uL (1.0-4.8); Lymphocytes % (A) 26 %; MCH 20.8 pg (25.0-35.0); MCHC 29.3 g/dL (31.0-37.0); MCV 71.2 fL (80.0-100.0); Mean Platelet Volume 7.4; Microcytosis Moderate; Monocytes # (A) 0.3 k/uL (0-1.0); Monocytes % (A) 5 %; Neutrophils # (A) 4.5 k/uL (1.3-7.7); Neutrophils % (A) 65 %; Platelet Count 348 k/uL (150-450); RBC 3.83 m/uL (3.80-5.40); RDW 17.3 % (11.5-15.5)
== END | disposition home or self-care (01) ==
LOC: LABWHC1 10:54
PROVIDERS: ATTEND Hospitalist
DX: D64.9 Anemia, unspecified (principal)
CPT/HCPCS: 36415; 85025

== ENCOUNTER → 2018-11-18 | Outpatient (CLI) | payer MEDICARE, BC ==
[2018-11-18 11:21] LABS: Anisocytosis Slight; Basophils % (A) 1 %; Eosinophils # (A) 0.2 k/uL (0-0.7); Eosinophils % (A) 3 %; HCT 31.2 % (34.0-46.0); Hypochromasia Marked; Lymphocytes # (A) 1.7 k/uL (1.0-4.8); Lymphocytes % (A) 27 %; MCH 20.5 pg (25.0-35.0); MCHC 28.8 g/dL (31.0-37.0); MCV 71.2 fL (80.0-100.0); Mean Platelet Volume 6.7; Microcytosis Marked; Monocytes # (A) 0.3 k/uL (0-1.0); Monocytes % (A) 5 %; Neutrophils # (A) 3.9 k/uL (1.3-7.7); Neutrophils % (A) 63 %; Platelet Count 407 k/uL (150-450); RBC 4.38 m/uL (3.80-5.40); RDW 17.8 % (11.5-15.5); Reticulocyte % 2.6 % (0.5-2.0); WBC 6.2 k/uL (3.8-10.6)
[2018-11-18 17:04] LABS: Iron Saturation 3.95 (12.00-45.00)
== END ==
LOC: LABWHC1 10:36
PROVIDERS: ATTEND Family Medicine
DX: D64.9 Anemia, unspecified (principal)
CPT/HCPCS: 36415; 82728; 83540; 83550; 85025; 85045

== ENCOUNTER → 2018-12-11 | Outpatient (CLI) | payer MEDICARE, BC ==
[2018-12-11 13:56] LABS: Anisocytosis Slight; Basophils % (A) 1 %; Eosinophils # (A) 0.1 k/uL (0-0.7); Eosinophils % (A) 2 %; HCT 34.8 % (34.0-46.0); HGB 9.9 gm/dL (11.4-16.0); Hypochromasia Marked; Lymphocytes # (A) 2.4 k/uL (1.0-4.8); Lymphocytes % (A) 35 %; MCH 21.6 pg (25.0-35.0); MCHC 28.5 g/dL (31.0-37.0); MCV 75.6 fL (80.0-100.0); Mean Platelet Volume 6.6; Microcytosis Moderate; Monocytes # (A) 0.3 k/uL (0-1.0); Monocytes % (A) 5 %; Neutrophils # (A) 3.7 k/uL (1.3-7.7); Neutrophils % (A) 55 %; Platelet Count 337 k/uL (150-450); RBC 4.61 m/uL (3.80-5.40); RDW 18.9 % (11.5-15.5); Reticulocyte % 1.5 % (0.5-2.0); WBC 6.8 k/uL (3.8-10.6)
[2018-12-11 19:08] LABS: Ferritin 9.7 ng/mL (10.0-291.0); Iron Saturation 16.22 (12.00-45.00)
== END ==
LOC: LABWHC1 13:19
PROVIDERS: ATTEND Family Medicine
DX: D64.9 Anemia, unspecified (principal)
CPT/HCPCS: 36415; 82728; 83540; 83550; 85025; 85045

== ENCOUNTER → 2019-02-09 | Outpatient (CLI) | payer MEDICARE, BC ==
[2019-02-09 08:51] LABS: Anisocytosis Slight; Basophils % (A) 1 %; Eosinophils # (A) 0.1 k/uL (0-0.7); Eosinophils % (A) 3 %; HCT 38.5 % (34.0-46.0); HGB 12.1 gm/dL (11.4-16.0); Hypochromasia Moderate; Lymphocytes # (A) 1.9 k/uL (1.0-4.8); Lymphocytes % (A) 36 %; MCH 24.8 pg (25.0-35.0); MCHC 31.4 g/dL (31.0-37.0); Mean Platelet Volume 6.4; Microcytosis Slight; Monocytes # (A) 0.3 k/uL (0-1.0); Monocytes % (A) 5 %; Neutrophils % (A) 54 %; Platelet Count 271 k/uL (150-450); RBC 4.87 m/uL (3.80-5.40); RDW 18.7 % (11.5-15.5); Reticulocyte % 1.1 % (0.5-2.0); WBC 5.5 k/uL (3.8-10.6)
[2019-02-09 21:01] LABS: % Iron Saturation 13.31 (12.00-45.00)
[2019-02-09 21:11] LABS: Ferritin 10.6 ng/mL (10.0-291.0)
== END ==
LOC: LABWHC1 08:00
PROVIDERS: ATTEND Family Medicine
DX: D64.9 Anemia, unspecified (principal)
CPT/HCPCS: 36415; 82728; 83540; 83550; 85025; 85045

== ENCOUNTER 2023-11-28 10:29 | Day surgery (SDC) | payer BC, MEDICARE ==
[2023-11-28 10:54] VITALS: TEMP 97.1
[2023-11-28] MEDS: IV FLUID CONTINUATION 1,000 ML IV ONE (11:01)
[2023-11-28] MEDS: LACTATED RINGERS 1,000 ML IV SCH (11:02)
[2023-11-28] MEDS ORDERED: PROPOFOL 10 MG/ML 20 ML VIAL IV ONE (11:04)
--- NOTE | 2023-11-28 11:32 | P.PCN ---
Date of Procedure: 11/28/23 Procedure(s) Performed: BRIEF HISTORY: Patient is a 78-year-old pleasant white female scheduled for an elective colonoscopy as a part of screening for colon cancer. PROCEDURE PERFORMED: Colonoscopy. PREOPERATIVE DIAGNOSIS: Screening for colon cancer. IV sedation per Anesthesia. PROCEDURE: After informed consent was obtained, the patient, was brought into the endoscopy unit. IV sedation was administered by Anesthesia under continuous monitoring. Digital rectal examination was normal. Initially the Olympus CF-160 flexible video colonoscope was then inserted in the rectum, gradually advanced into the cecum without any difficulty. Careful examination was performed as the scope was gradually being withdrawn. Ileocecal valve and the appendiceal orifice were visualized and appeared normal. Prep was excellent. Mucosa of the cecum, ascending colon, transverse colon, descending colon, sigmoid colon, and rectum appeared normal. Scattered left-sided diverticulosis retroflexion was performed in the rectum and no lesions were seen. The patient tolerated the procedure well. IMPRESSION: Normal-appearing colon from rectum to cecum with no evidence of colorectal neoplasia. Scattered left-sided diverticulosis. RECOMMENDATIONS: Findings of this examination were discussed with the patient as well as her family. She was advised to be on high-fiber diet and fiber supplements on a regular basis..
[2023-11-28 11:54] VITALS: PULSE 73; RESP 16
[2023-11-28 12:01] VITALS: BP 128/80
== END 2023-11-28 12:38 | disposition home or self-care (01) ==
LOC: ORWHC2ENDO 10:29
PROVIDERS: ATTEND Internal Medicine Gastroenterology
DX: Z12.11 Encounter for screening for malignant neoplasm of colon